=== PATIENT | male | born 1990 | race African-American/Black ===

== ENCOUNTER 2018-07-06 05:35 | Emergency (ER) | payer SELFPAY ==
--- NOTE | 2018-07-06 06:36 | ER Document Report ---
ED General - General Chief Complaint: Skin Problem Stated Complaint: JAW PAIN Time Seen by Provider: 07/06/18 06:17 TRAVEL OUTSIDE OF THE [place] IN LAST 30 DAYS: No - HPI Patient complains to provider of: Chin swelling Onset: Other - 27-year-old gentleman that presents for evaluation of chin swelling which started last night. Noted that the swelling seemed much worse this morning. There is been some drainage from a hair follicle on his chin, he had taken some tweezers and tried to pull it out and there was some drainage thereafter because of the swelling he was concerned and came to the emergency room for further evaluation, denies any fevers, chills shortness of breath pain in the throat chest pain abdominal pain diarrhea constipation dysuria any similar symptoms in the past. - Related Data Allergies/Adverse Reactions: No Known Allergies Allergy (Unverified 10/03/14 23:45) Past Medical History - General Information source: Patient - Social History Smoking Status: Current Some Day Smoker Smoking Education Provided: Yes Family History: None - patient states none Pulmonary Medical History: Reports: Hx Asthma - Immunizations Immunizations up to date: Yes Hx Diphtheria, Pertussis, Tetanus Vaccination: Yes Review of Systems - Review of Systems -: Yes All other systems reviewed and negative Physical Exam - Vital signs Vitals: Temp Pulse Resp BP Pulse Ox 98.7 F 73 16 142/93 H 100 07/06/18 05:42 07/06/18 05:42 07/06/18 05:42 07/06/18 05:42 07/06/18 05:42 Interpretation: Normal - General General appearance: Appears well, Alert - HEENT Head: Normocephalic, Atraumatic Eyes: Normal Pupils: PERRL Neck: Other - Erythema and comedone in the chin, moderate soft tissue swelling moving laterally - Respiratory Respiratory status: No respiratory distress Chest status: Nontender Breath sounds: Normal Chest palpation: Normal - Cardiovascular Rhythm: Regular Heart sounds: Normal auscultation Murmur: No - Abdominal Inspection: Normal Distension: No distension Bowel sounds: Normal Tenderness: Nontender Organomegaly: No organomegaly - Back Back: Normal, Nontender - Extremities General upper extremity: Normal inspection, Nontender, Normal color, Normal ROM, Normal temperature General lower extremity: Normal inspection, Nontender, Normal color, Normal ROM, Normal temperature, Normal weight bearing. No: Alden's sign - Neurological Neuro grossly intact: Yes Cognition: Normal Orientation: AAOx4 [place] Coma Scale Eye Opening: Spontaneous [place] Coma Scale Verbal: Oriented Faye Coma Scale Motor: Obeys Commands [place] Coma Scale Total: 15 Speech: Normal Motor strength normal: LUE, RUE, LLE, RLE Sensory: Normal - Psychological Associated symptoms: Normal affect, Normal mood - Skin Skin Temperature: Warm Skin Moisture: Dry Skin Color: Normal Course - Re-evaluation Re-evalutation: 07/06/18 09:14 27-year-old male presents for folliculitis of the chin. Does not demonstrate any symptoms suggestive of Carmine's angina at this time, he has no difficulty breathing, no trismus, is able to range the mouth normally. Denies any fevers or chills chest pain or otherwise. Bedside ultrasound did not demonstrate an obvious fluid collection amenable to drainage. Believe that likely this patient is safe for outpatient management with ant ibiotics and conservative treatment. We will plan for discharge with return precautions and expectant management. - Vital Signs Vital signs: Temp Pulse Resp BP Pulse Ox 98.7 F 73 16 142/93 H 100 07/06/18 05:42 07/06/18 05:42 07/06/18 05:42 07/06/18 05:42 07/06/18 05:42 Discharge - Discharge Clinical Impression: Folliculitis, Skin swelling Condition: Good Disposition: HOME, SELF-CARE Instructions: Cellulitis ([facility]), Cephalexin ([facility]), Folliculitis ([facility]), Topical Erythromycin ([facility]) Additional Instructions: You were seen today in the emergency department for the swelling in your chin. I believe that you have a infection in the follicles in the skin. You been given an antibiotic to use orally. Also you have been given a cream to use at least twice daily. Use warm compresses make sure you are cleaning your skin. Return to the emergency room for worsening swelling in the throat, fevers, chills if you are unable to eat or drink. Prescriptions: Cephalexin Monohydrate [Keflex 500 mg Capsule] 500 mg PO Q6H 7 Days #28 capsule Erythromycin Base/Ethanol [Erythromycin 2% Gel] 60 gm TP BID #1 gel..gm.
[2018-07-06] MEDS ORDERED: CEPHALEXIN 500 MG CAPSULE PO ONE (06:49)
[2018-07-06 06:57] VITALS: BP 139/85
== END 2018-07-06 07:03 | disposition home or self-care (01) ==
LOC: ER 05:35
DX: L73.9 Follicular disorder, unspecified (principal); R22.0 Localized swelling, mass and lump, head; F17.200 Nicotine dependence, unspecified, uncomplicated
CPT/HCPCS: 99283

== ENCOUNTER 2019-11-12 01:42 | Emergency (ER) | payer SELFPAY ==
[2019-11-12] MEDS ORDERED: LIDOCAINE 1%/EPINEPHRINE INJ 20 ML VIAL INJ ONE (02:03)
[2019-11-12] MEDS ORDERED: OXYCODONE-ACETAMINOPHEN 5-325 MG TABLET PO ONE (02:04)
[2019-11-12] MEDS ORDERED: PROMETHAZINE HCL 25 MG TABLET PO ONE (02:04)
--- NOTE | 2019-11-12 02:05 | ER Document Report ---
ED Skin Rash/Insect Bite/Abscs - General Chief Complaint: Abscess Stated Complaint: CHEST PAIN Time Seen by Provider: 11/12/19 01:58 Notes: Patient is a 29-year-old male that comes to the emergency department for chief complaint of developing painful, swollen, red area on his left upper chest. He states it started 5 days ago and has worsened. He denies history of abscesses or MRSA, he denies IV drug abuse, denies fever, vomiting, or any other complaints. He denies any daily medications. He does admit that he shaves his chest. TRAVEL OUTSIDE OF THE [place] IN LAST 30 DAYS: No - Related Data Allergies/Adverse Reactions: No Known Allergies Allergy (Unverified 10/03/14 23:45) Past Medical History - General Information source: Patient - Social History Smoking Status: Current Some Day Smoker Frequency of alcohol use: None Drug Abuse: None Lives with: Family Family History: None - patient states none Patient has homicidal ideation: No Pulmonary Medical History: Reports: Hx Asthma Renal/ Medical History: Denies: Hx Peritoneal Dialysis Surgical Hx: Negative - Immunizations Immunizations up to date: Yes Hx Diphtheria, Pertussis, Tetanus Vaccination: Yes Review of Systems - Review of Systems Constitutional: No symptoms reported EENT: No symptoms reported Cardiovascular: No symptoms reported Respiratory: No symptoms reported Gastrointestinal: No symptoms reported Genitourinary: No symptoms reported Male Genitourinary: No symptoms reported Musculoskeletal: No symptoms reported Skin: See HPI Hematologic/Lymphatic: No symptoms reported Neurological/Psychological: No symptoms reported Physical Exam - Vital signs Vitals: Temp 97.8 F 11/12/19 01:51 - Notes Notes: GENERAL: Alert, interacts well. No acute distress. HEAD: Normocephalic, atraumatic. EYES: Pupils equal, round, and reactive to light. Extraocular movements intact. ENT: Oral mucosa moist, tongue midline. Oropharynx unremarkable. Airway patent. NECK: Full range of motion. Supple. Trachea midline. No lymphadenopathy. LUNGS: Clear to auscultation bilaterally, no wheezes, rales, or rhonchi. No respiratory distress. There is a indurated, fluctuant abscess with a head over the left chest over the medial aspect of the pectoral muscle near the sternal border. There is some surrounding tenderness but no overt erythema. There are keloids over the chest. Otherwise unremarkable. HEART: Regular rate and rhythm. No murmur ABDOMEN: Soft, non-tender. Non-distended. EXTREMITIES: Moves all 4 extremities spontaneously. No edema, normal radial and dorsalis pedis pulses bilaterally. No cyanosis. BACK: no cervical, thoracic, lumbar midline tenderness. No saddle anesthesia, normal distal neurovascular exam. Moves all extremities in full range of motion. NEUROLOGICAL: Alert and oriented x3. Normal speech. Cranial nerves II through XII grossly intact. Strength 5/5 in all extremities. PSYCH: Normal affect, normal mood. SKIN: Warm, dry, normal turgor. No rashes or lesions noted. Course - Re-evaluation Re-evalutation: Patient with an obvious indurated, fluctuant abscess over the chest wall with no significant cellulitis or findings otherwise. I suspect this from shaving based on his clearly shaving chest and keloids from previous shaving. No fever, patient initially was tachycardic, however he told me he was very anxious when he got here, he is not tachycardic on my exam, vitals repeated and much improved. Abscess was drained without any difficulty, cleaned, dressed, discussed care, follow-up, return precautions. Patient states understanding and agreement. - Vital Signs Vital signs: Temp Pulse Resp BP Pulse Ox 98.5 F 78 18 120/64 99 11/12/19 03:37 11/12/19 03:37 11/12/19 03:37 11/12/19 03:37 11/12/19 03:37 Procedures - Incision and Drainage Left side of chest Type: Single Anesthetic type: 1% Lidocaine w/epi mL's of anesthetic: 5 Blade size: 11 I&D procedure: Shurclens applied, Sterile dressing applied Incision Method: Incision made by scalpel Amount/type of drainage: about 3 cc of purulent drainage Discharge - Discharge Clinical Impression: Abscess Condition: Stable Disposition: HOME, SELF-CARE Additional Instructions: The abscess has been drained. Take the antibiotics as prescribed, keep a clean absorbing dressing over the area, clean the area with soap and water. Take the provided pain medications from here only if needed using the precautions. Do not shave your chest as this heals. I recommend instead of shaving your chest that you use trimmers with a guard instead to reduce the risk of injury, scars, and infection. Follow-up with primary care for additional management. Return for any concerning symptoms including developing or spreading redness, fever, or any other concerning symptoms. Prescriptions: Sulfamethoxazole/Trimethoprim [Bactrim Ds Tablet] 1 each PO BID #14 tablet Forms: Return to Work
[2019-11-12] MEDS ORDERED: SULFAMETHOXAZOLE/TRIMETHOPRIM 800-160 MG TABLET PO ONE (03:10)
[2019-11-12] MEDS ORDERED: HYDROCODONE/ACETAMINOPHEN 5-325 MG (6 TAB/ER DISP) PO PRN (03:10)
[2019-11-12 03:38] VITALS: BP 120/64
== END 2019-11-12 03:38 | disposition home or self-care (01) ==
LOC: ER 01:42
DX: L02.213 Cutaneous abscess of chest wall (principal); J45.909 Unspecified asthma, uncomplicated; F17.200 Nicotine dependence, unspecified, uncomplicated
CPT/HCPCS: 99283; 10060; J3490

== ENCOUNTER 2019-12-22 09:44 | Emergency (ER) | payer SELFPAY ==
[2019-12-22 09:56] VITALS: BP 130/70
--- NOTE | 2019-12-22 10:06 | ER Document Report ---
ED Medical Screen (RME) - General Chief Complaint: Abscess Stated Complaint: CHEST PAIN Time Seen by Provider: 12/22/19 10:03 Mode of Arrival: Ambulatory Information source: Patient Notes: 29-year-old male presented to ED for the abscess to the center of the chest. He states it hurts whenever he moves. He states he has had it for about a week. There is a fluctuant area to the center of his chest. He does not need a chest pain work-up the pain is in the abscess. It is very tender to palpation. He does have some keloids right beside the abscess. He states they are not tender. He is alert oriented respirations regular and unlabored speaking in full sentences. He smokes about once a week drinks about once every 1 or 2 weeks and does no drugs. He states he has no past medical history. I have greeted and performed a rapid initial assessment of this patient. A comprehensive ED assessment and evaluation of the patient, analysis of test results and completion of medical decision making process will be conducted by an additional ED providers. TRAVEL OUTSIDE OF THE [place] IN LAST 30 DAYS: No - Related Data Allergies/Adverse Reactions: No Known Allergies Allergy (Verified 12/22/19 09:59) Past Medical History Pulmonary Medical History: Reports: Hx Asthma Renal/ Medical History: Denies: Hx Peritoneal Dialysis - Immunizations Immunizations up to date: Yes Hx Diphtheria, Pertussis, Tetanus Vaccination: Yes Physical Exam - Vital signs Vitals: Temp Pulse Resp BP Pulse Ox 98.3 F 95 19 130/70 H 98 12/22/19 09:55 12/22/19 09:55 12/22/19 09:55 12/22/19 09:55 12/22/19 09:55 Course - Vital Signs Vital signs: Temp Pulse Resp BP Pulse Ox 98.3 F 95 19 130/70 H 98 12/22/19 09:55 12/22/19 09:55 12/22/19 09:55 12/22/19 09:55 12/22/19 09:55
--- NOTE | 2019-12-22 10:57 | ER Document Report ---
Entered by KATY PORTILLO SCRIBE 12/22/19 1024 Acting as scribe for:YURI MENDEZ MD ED General - General Chief Complaint: Abscess Stated Complaint: CHEST PAIN Time Seen by Provider: 12/22/19 10:03 Mode of Arrival: Ambulatory Information source: Patient Notes: This 29-year-old male presents to the emergency department complaining of an abscess on the center of his chest that began a week ago. Patient reports associated tenderness around the area. Patient explained that 3-4 days ago, he used alcohol and a needle to drain with abscess with little pus drainage. Patient said that pain began today. Patient mentions that he had a similar abscess located on the right side of his chest about a month ago, which went away after draining it with no issues. Patient denies nausea, vomiting, fever, chills and COVID-19 exposure. TRAVEL OUTSIDE OF THE [place] IN LAST 30 DAYS: No - Related Data Allergies/Adverse Reactions: No Known Allergies Allergy (Verified 12/22/19 09:59) Past Medical History - General Information source: Patient - Social History Smoking Status: Current Some Day Smoker Cigarette use (# per day): Yes Chew tobacco use (# tins/day): No Frequency of alcohol use: Social Drug Abuse: None Occupation: [employer] employee Lives with: Family Family History: None - patient states none Patient has homicidal ideation: No Pulmonary Medical History: Reports: Hx Asthma Surgical Hx: Negative - Immunizations Immunizations up to date: Yes Hx Diphtheria, Pertussis, Tetanus Vaccination: Yes Review of Systems - Review of Systems Constitutional: See HPI. denies: Chills, Fever EENT: No symptoms reported Cardiovascular: No symptoms reported Respiratory: No symptoms reported Gastrointestinal: See HPI. denies: Nausea, Vomiting Genitourinary: No symptoms reported Male Genitourinary: No symptoms reported Musculoskeletal: No symptoms reported Skin: Other - Abscess on chest Hematologic/Lymphatic: No symptoms reported Neurological/Psychological: No symptoms reported -: Yes All other systems reviewed and negative Physical Exam - Vital signs Vitals: Temp Pulse Resp BP Pulse Ox 98.3 F 95 19 130/70 H 98 12/22/19 09:55 12/22/19 09:55 12/22/19 09:55 12/22/19 09:55 12/22/19 09:55 - Notes Notes: Physical Exam: General: Alert, appears well. HEENT: Normocephalic. Atraumatic. PERRL. Extraocular movements intact. Oropharynx clear. Neck: Supple. Non-tender. Respiratory: No respiratory distress. Clear and equal breath sounds bilaterally. Cardiovascular: Regular rate and rhythm. Abdominal: Normal Inspection. Non-tender. No distension. Normal Bowel Sounds. Back: No gross abnormalities. Extremities: Moves all four extremities. Upper extremities: Normal inspection. Normal ROM. Lower extremities: Normal inspection. No edema. Normal ROM. Neurological: Normal cognition. AAOx4. Normal speech. Psychological: Normal affect. Normal Mood. Skin: Warm. Dry. Normal color. Small 3 cm abscess that is located on the upper chest wall along the midline, left of the sternum. Area has a port where patient states he poked the abscess with a needle himself. Associated swelling noted. No drainage, warmth or erythema. Course - Re-evaluation Re-evalutation: 12/22/19 10:26 Patient resting comfortably. - Vital Signs Vital signs: Temp Pulse Resp BP Pulse Ox 98.3 F 95 19 130/70 H 98 12/22/19 10:00 12/22/19 09:55 12/22/19 09:55 12/22/19 09:55 12/22/19 09:55 12/22/19 10:25 Vital signs stable - EKG Interpretation by Me Additional EKG results interpreted by me: 12/22/19 10:27 Twelve-lead EKG accelerated junctional rhythm rate of [address]-T wave changes inferiorly. Discharge - Discharge Clinical Impression: Skin abscess Condition: Stable Disposition: HOME, SELF-CARE Instructions: Abscess ([facility]), Trimethoprim-Sulfa ([facility]) Additional Instructions: Abscess You have an abscess (boil). This a pus-forming infection, usually due to staph. Some boils may be left to drain on their own, but most require lancing. From the time the tender lump first appears, it may be three or four days before the abscess is ready to beth. Local heat and rest help at this stage of treatment. An antibiotic may prevent spread of the infection. Once the abscess is opened, packing may be placed into it. This is done so pus is not sealed inside by premature closure of the cavity. The packing will be removed at your follow-up visit or you may be advised to remove it yourself at home. Sometimes this packing must be replaced a few times during healing. The wound will heal with surprisingly little scar. Depending on the size and location of an abscess, healing can take one to four weeks. You may shower and wash the area around the incision site two or three times a day. Antibiotics may be prescribed, but are usually not necessary after an abscess has been drained. If you develop fever, chilling, worsening pain, or increasing swelling in the area, call the doctor or return immediately. Prescriptions: Sulfamethoxazole/Trimethoprim [Bactrim Ds Tablet] 1 each PO BID #20 tablet Mupirocin [Bactroban 2% Ointment 22 gm] 1 applic TP TID #1 tube Ibuprofen [Motrin 800 mg Tablet] 800 mg PO Q8H PRN #30 tab PRN Reason: pain I personally performed the services described in the documentation, reviewed and edited the documentation which was dictated to the scribe in my presence, and it accurately records my words and actions.
--- NOTE | 2019-12-22 19:12 | EKG REPORT ---
SEVERITY:- ABNORMAL ECG - ACCELERATED JUNCTIONAL RHYTHM NONSPECIFIC T ABNORMALITIES, INFERIOR LEADS : Confirmed by: Sheeba Boone MD 22-Dec-2019 19:11:50
== END 2019-12-22 11:00 | disposition home or self-care (01) ==
LOC: ER 09:44
DX: L02.213 Cutaneous abscess of chest wall (principal); F17.210 Nicotine dependence, cigarettes, uncomplicated; R22.2 Localized swelling, mass and lump, trunk
CPT/HCPCS: 93005; 93010; 99283